=== PATIENT | female | born 2000 | race African-American/Black ===

== ENCOUNTER 2020-09-12 00:32 | Inpatient (IN) ==
[2020-09-12] MEDS ORDERED: MEPERIDINE 50 MG/1 ML VIAL IM PRN (01:04)
[2020-09-12] MEDS ORDERED: ONDANSETRON 4 MG/2 ML VIAL IV PRN (01:04)
[2020-09-12] MEDS ORDERED: BUTORPHANOL 2 MG/ML VIAL IV PRN (01:04)
[2020-09-12] MEDS ORDERED: LACTATED RINGERS 1,000 ML IV SCH ×2 (01:30→17:30)
[2020-09-12 01:37] LABS: Basophils % 0.3 % (0.0-0.8); Eosinophils # 0.1 10*3/uL (0.0-0.87); Eosinophils % 1.1 % (0.00-10.9); Hematocrit 33.2 VOL% (35.7-47.0); Hemoglobin 10.3 GM/DL (12.0-16.0); Immature Granulocytes % 1.5 %; Immature Granulocytes Absolute 0.11 #; Lymphocytes # 2.4 10*3/uL (1.4-4.0); Lymphocytes % 31.4 % (21.3-54.2); Mean Corpuscular Volume 89.5 FL (87-102); Mean Platelet Volume 10.4 FL (9.6-12.0); Monocytes % 6.1 % (1.7-12.7); Neutrophils % 59.6 % (38.7-73.9); Platelet Count 287 T/CUMM (130-400); Red Blood Count 3.71 MC/CUMM (3.8-5.5); Red Cell Distribution Width 15.1 % (9.3-17.3); White Blood Count 7.6 T/CUMM (4-12)
[2020-09-12 01:51] LABS: Bacteria,Urine Occasional /HPF (Few); Bilirubin,Urine Negative (Negative); Blood, Urine Moderate mg/dL (Negative); Glucose,Urine (UA) Negative (Negative); Ketones,Urine Negative (Negative); Nitrite,Urine Negative (Negative); Protein,Urine Negative; RBC,Urine 2 /HPF (0-4); Squamous Epithelial Cell,Urine Occasional /HPF (0-10); Urine Appearance CLEAR (Clear); Urine Color Straw (Yellow); Urine Specific Gravity 1.003 (1.001-1.035); Urine Urobilinogen < 2.0 EU/DL (0.2-1.0); WBC,Urine 1 /HPF (0-6)
[2020-09-12] MEDS ORDERED: AMPICILLIN INJ 2,000 MG in SODIUM CHLORIDE 0.9% 100 ML IV ONE (06:29)
[2020-09-12] MEDS ORDERED: OXYTOCIN/LR 20 UNIT/1,000 ML BAG IV SCH (08:30)
[2020-09-12] MEDS ORDERED: AMPICILLIN INJ 1,000 MG in SODIUM CHLORIDE 0.9% 100 ML IV SCH (09:30)
[2020-09-12] MEDS ORDERED: MEPERIDINE 50 MG/1 ML VIAL IV PRN (09:52)
[2020-09-12] MEDS ORDERED: fentaNYL 2 MCG/ROPIV 0.2% EPID 100 ML EPIDURAL ONE (11:37)
[2020-09-12] MEDS ORDERED: LIDOCAINE 1% 50 ML VIAL ONE (12:53)
[2020-09-12] MEDS ORDERED: METHYLERGONOVINE 0.2 MG/1 ML AMP ONE (12:53)
[2020-09-12] MEDS ORDERED: miSOPROStoL 200 MCG TABLET ONE (12:54)
[2020-09-12 15:58] LABS: Cord Venous Blood HCO3 18.8 MMOL/L; Cord Venous Blood PCO2 37.9 MMHG; Cord Venous Blood PO2 29.4 MMHG
[2020-09-12] MEDS ORDERED: MAGNESIUM HYDROXIDE SUSP 30 ML UDCUP PO PRN (17:14)
[2020-09-12] MEDS ORDERED: ACETAMINOPHEN 325 MG TABLET PO PRN (17:14)
[2020-09-12] MEDS ORDERED: BISACODYL 10 MG SUPP RECTAL PRN (17:14)
[2020-09-12] MEDS ORDERED: BENZOCAINE 20%/MENTHOL 0.5% SPRAY 56 GM CAN TOP PRN (19:06)
[2020-09-12] MEDS: DOCUSATE SODIUM 100 MG CAPSULE PO SCH ×2 (19:43→21:48)
[2020-09-12] MEDS: IBUPROFEN 800 MG TABLET PO PRN (20:51)
[2020-09-12] MEDS ORDERED: diphenhydrAMINE 2% CREAM 28 GM TUBE TOP PRN (23:31)
[2020-09-13 06:42] LABS: Red Cell Distribution Width 15.1 % (9.3-17.3)
[2020-09-13 07:09] LABS: Basophils % 0.3 % (0.0-0.8); Eosinophils % 0.3 % (0.00-10.9); Hematocrit 25.4 VOL% (35.7-47.0); Immature Granulocytes % 0.5 %; Immature Granulocytes Absolute 0.08 #; Lymphocytes # 3.2 10*3/uL (1.4-4.0); Lymphocytes % 22.1 % (21.3-54.2); Mean Corpuscular HGB Conc 32.3 GM/DL (32-36); Mean Corpuscular Volume 87.6 FL (87-102); Mean Platelet Volume 10.4 FL (9.6-12.0); Monocytes % 9.6 % (1.7-12.7); Neutrophils % 67.2 % (38.7-73.9); Platelet Count 243 T/CUMM (130-400)
[2020-09-13 07:10] LABS: White Blood Count 14.6 T/CUMM (4-12)
[2020-09-13 07:11] LABS: Hemoglobin 8.2 GM/DL (12.0-16.0)
[2020-09-13] MEDS: MULTIVITAMIN (PRENATAL) TABLET PO SCH (08:41)
[2020-09-13] MEDS: DOCUSATE SODIUM 100 MG CAPSULE PO SCH ×2 (08:41→20:55)
[2020-09-13] MEDS: FERROUS SULFATE 325 MG TABLET PO SCH ×2 (17:41→20:55)
[2020-09-14] MEDS: IBUPROFEN 800 MG TABLET PO PRN (03:19)
[2020-09-14 09:05] VITALS: BP 101/60
[2020-09-14] MEDS: MULTIVITAMIN (PRENATAL) TABLET PO SCH (09:39)
[2020-09-14] MEDS: DOCUSATE SODIUM 100 MG CAPSULE PO SCH (09:40)
[2020-09-14] MEDS: FERROUS SULFATE 325 MG TABLET PO SCH (09:40)
[2020-09-14] MEDS ORDERED: DIPH/TET/ACEL PERT BOOSTER VACCINE 0.5 ML VIAL IM ONE (10:23)
== END 2020-09-14 13:20 | disposition home or self-care (01) | DRG 560 ==
LOC: N.LD 00:32 → N.OB 17:01
PROVIDERS: ADMIT Obstetrics & Gynecology; ATTEND Obstetrics & Gynecology